=== PATIENT | female | born 2000 | race African-American/Black ===

== ENCOUNTER 2018-02-14 19:26 | Emergency (ER) | payer BC ==
[~2018-02-14] VITALS: Ht 160 cm; Wt 74.4 kg
--- NOTE | ~2018-02-14 | EKG ---
[address] [address] ELECTROCARDIOGRAM REPORT Name: MARIANNE GARCIA Room #: ROSA MARIA Rueda#: [id number] Admission: 02/14/18 Attend Phys: Discharge: 02/14/18 Date of : [birth year] Report #: [id number] THIS REPORT FOR: //name// [facility] ED Test Date: 2018-02-14 Test Time: 21:02:26 Pat Name: MARIANNE GARCIA Department: Room: Gender: F Burner Hand: stephanie : 2000 Requested By: Toshia Riojas Order Number: [id number] MD: Matt Underwood Measurements Intervals [place] Rate: 116 P: 64 PA: 159 QRS: 59 QRSD: 76 T: 17 QT: 328 QTc: 456 Interpretive Statements Sinus tachycardia Nonspecific ST segment abnormality No previous ECG available for comparison Electronically Signed On 02-15-2018 8:26:27 CDT by Matt Underwood [email or web address] <ELECTRONICALLY SIGNED> By: Matt Underwood MD, [facility] 02/15/18 0826 210 01 Matt Underwood MD, FACC /EPI
[2018-02-14] MEDS ORDERED: NAPROSYN500 MG PO (21:44)
[2018-02-14 23:00] VITALS: BP 115/61
== END 2018-02-14 23:01 | disposition home or self-care (01) ==
LOC: ER 19:26
DX: R51 Headache (principal)